=== PATIENT | male | born 1950 | race Caucasian/White ===

== ENCOUNTER 2017-11-13 12:40 | Emergency (ER) | payer SELFPAY ==
[~2017-11-13] VITALS: Ht 182.9 cm; Wt 54.9 kg
[2017-11-13 15:07] LABS: BASOPHILS % 1.1 % (0.0-2.0); EOSINOPHILS % 0.8 % (0.0-5.0); HEMATOCRIT. 40.4 % (42.0-52.0); HEMOGLOBIN. 13.3 g/dL (14.0-18.0); LYMPHOCYTES % 19.3 % (20.0-50.0); MEAN CORPUSCULAR HEMOGLOBIN 28.9 pg (28.0-32.0); MEAN CORPUSCULAR VOLUME 87.6 fL (80.0-94.0); MEAN PLATELET VOLUME 6.1 fl (7.4-10.4); MONOCYTES % 6.4 % (2.0-8.0); NEUTROPHILS % 72.4 % (40.0-76.0); PLATELET 314 x1000/uL (130-400); RED BLOOD CELL COUNT 4.61 mill/uL (4.7-6.1); RED CELL DISTRIBUTION WIDTH 16.1 % (11.6-14.6)
[2017-11-13 15:24] LABS: CARBON DIOXIDE 24 mEq/L (21-32); CHLORIDE 99 mEq/L (98-107); ETHANOL BLOOD 116 mg/dL; TROPONIN I < 0.02 ng/mL (0.00-0.04)
[2017-11-13] MEDS ORDERED: IBUPROFEN 600MG TABLET PO ONE (18:30)
[2017-11-13] MEDS ORDERED: HYDROCODONE/APAP 7.5/325MG 1 TAB TABLET PO ONE (22:30)
[2017-11-14 12:30] VITALS: BP 87/51
== END 2017-11-13 23:40 | disposition home or self-care (01) ==
LOC: ER 12:40
DX: F10.129 Alcohol abuse with intoxication, unspecified (principal); K52.9 Noninfective gastroenteritis and colitis, unspecified; R07.89 Other chest pain; M25.559 Pain in unspecified hip; F17.200 Nicotine dependence, unspecified, uncomplicated
CPT/HCPCS: 36415; 71010; 80053; 80307; 80329; 83690; 84484; 85025; 93005; 99285; G0482; Z7610

== ENCOUNTER 2017-11-19 19:47 | Emergency (ER) | payer MEDICARE, MEDICAID ==
[~2017-11-19] VITALS: Ht 175.3 cm; Wt 60.0 kg
[2017-11-19 21:08] VITALS: BP 97/69
== END 2017-11-20 05:20 | disposition left against medical advice (07) ==
LOC: ER 11-20 00:38
DX: R10.9 Unspecified abdominal pain (principal); Z53.21 Procedure and treatment not carried out due to patient leaving prior to being seen by health care provider

== ENCOUNTER 2017-11-20 08:13 | Emergency (ER) | payer MEDICARE, MEDICAID ==
[~2017-11-20] VITALS: Ht 172.7 cm; Wt 73.0 kg
[2017-11-20 08:21] VITALS: BP 111/79
== END 2017-11-20 13:11 | disposition left against medical advice (07) ==
LOC: ER 08:31
DX: R07.9 Chest pain, unspecified (principal); R10.30 Lower abdominal pain, unspecified; Z53.21 Procedure and treatment not carried out due to patient leaving prior to being seen by health care provider
CPT/HCPCS: 93005

== ENCOUNTER 2017-11-21 05:51 | Emergency (ER) | payer MEDICARE, MEDICAID ==
[~2017-11-21] VITALS: Ht 182.9 cm; Wt 59.0 kg
[2017-11-21 08:17] LABS: BASOPHILS % 1.2 % (0.0-2.0); EOSINOPHILS % 1.1 % (0.0-5.0); HEMATOCRIT. 38.5 % (42.0-52.0); HEMOGLOBIN. 12.8 g/dL (14.0-18.0); LYMPHOCYTES % 18.6 % (20.0-50.0); MEAN CORPUSCULAR HEMOGLOBIN 29.7 pg (28.0-32.0); MEAN PLATELET VOLUME 6.1 fl (7.4-10.4); MONOCYTES % 9.6 % (2.0-8.0); NEUTROPHILS % 69.5 % (40.0-76.0); PLATELET 424 x1000/uL (130-400); RED BLOOD CELL COUNT 4.32 mill/uL (4.7-6.1); RED CELL DISTRIBUTION WIDTH 16.5 % (11.6-14.6)
[2017-11-21 08:33] LABS: CARBON DIOXIDE 26 mEq/L (21-32); CHLORIDE 102 mEq/L (98-107); TROPONIN I < 0.02 ng/mL (0.00-0.04)
[2017-11-21 11:33] VITALS: BP 128/74
== END 2017-11-21 11:41 | disposition home or self-care (01) ==
LOC: ER 05:51
DX: B34.9 Viral infection, unspecified (principal); J44.9 Chronic obstructive pulmonary disease, unspecified; F17.200 Nicotine dependence, unspecified, uncomplicated; Z88.0 Allergy status to penicillin; Z96.649 Presence of unspecified artificial hip joint; Z98.890 Other specified postprocedural states
CPT/HCPCS: 36415; 71046; 80053; 83605; 83880; 84484; 85025; 93005; 99285

== ENCOUNTER 2020-11-29 14:52 | Emergency (ER) | payer MEDICARE, MEDICAID ==
[~2020-11-29] VITALS: Ht 177.8 cm; Wt 68.0 kg
[2020-11-29] MEDS ORDERED: HYDROCODONE/ACETAMINOPHEN 5/325MG TABLET PO ONE (15:30)
[2020-11-29 15:41] VITALS: BP 111/68
== END 2020-11-29 15:42 | disposition home or self-care (01) ==
LOC: ER 15:08
DX: M54.5 Low back pain (principal); G89.29 Other chronic pain; Z88.0 Allergy status to penicillin
CPT/HCPCS: 99283

== ENCOUNTER 2020-12-01 23:47 | Emergency (ER) | payer MEDICARE, MEDICAID ==
[~2020-12-01] VITALS: Ht 172.7 cm; Wt 60.2 kg
[2020-12-02 06:18] VITALS: BP 120/72
[2020-12-02] MEDS: IBUPROFEN 400MG TABLET PO ONE (06:45)
== END 2020-12-02 07:06 | disposition home or self-care (01) ==
LOC: ER 23:47
DX: M54.5 Low back pain (principal); H61.21 Impacted cerumen, right ear; G89.29 Other chronic pain; Z88.0 Allergy status to penicillin
CPT/HCPCS: 99282